=== PATIENT | male | born 1970 | race Caucasian/White ===

== ENCOUNTER → 2024-06-28 08:58 | Outpatient (REF) | payer OTHER, SELFPAY | LOC: HWRCS 08:58 | PROVIDERS: ATTENDING PHYSICIAN Internal Medicine Cardiovascular Disease; FAMILY PHYSICIAN Internal Medicine | DX: I25.10 Atherosclerotic heart disease of native coronary artery without angina pectoris (principal); R93.1 Abnormal findings on diagnostic imaging of heart and coronary circulation | CPT/HCPCS: 93306 ==